=== PATIENT | female | born 2000 | race Two or more races ===

== ENCOUNTER 2023-09-19 09:54 | Emergency (ER) | payer OTHER, SELFPAY ==
--- NOTE | 2023-09-19 09:58 | ECG_ITS ---
Test Reason : CP Blood Pressure : / mmHG Vent. Rate : 081 BPM Atrial Rate : 081 BPM P-R Int : 120 ms QRS Dur : 076 ms QT Int : 372 ms P-R-T Axes : 010 028 003 degrees QTc Int : 432 ms Normal sinus rhythm Nonspecific T wave abnormality Inferior leads Abnormal ECG No previous ECGs available Referred By: Aissatou Bowling Electronically Signed By:DUARTE ZELAYA MD
[2023-09-19 09:59] VITALS: BP 119/67; PULSE 77; RESP 19; TEMP 36.6; O2SAT 99; BMI 41.2
[2023-09-19 10:50] LABS: MANUAL DIFF FLAG NO
[2023-09-19 10:56] LABS: Carbon Monoxide Refer to POC result
[2023-09-19 10:56] LABS: Carbon Monoxide POC 0.3 %
[2023-09-19 10:57] LABS: Basophils Percent Auto 0.3 % (0-2); Eosinophils Percent Auto 0.5 % (0-4); Hematocrit 41.3 % (37.0-47.0); Hemoglobin 14.2 g/dl (12.0-16.0); Imm Gran Abs Auto 0.05 X10*3/uL (0.00-0.03); Imm Gran Pct Auto 0.8 % (0.0-0.4); Lymphocytes Absolute Auto 2.2 X10*3/uL (1.2-4.9); Lymphocytes Percent Auto 36.3 % (20-40); Mean Corpuscular HGB Conc 34.4 g/dl (31.0-35.0); Mean Corpuscular Hemoglobin 28.2 pg (27.0-33.0); Mean Corpuscular Volume 82.1 fL (80.0-98.0); Mean Platelet Volume 9.8 fL (9.4-12.3); Monocytes Absolute Auto 0.3 X10*3/uL (0.1-1.2); Monocytes Percent Auto 4.8 % (2-11); Neutrophils Absolute Auto 3.5 x10*3/uL (2.0-8.3); Neutrophils Percent Auto 57.3 % (45-73); Platelet Count 330 X10*3/uL (160-400); Red Blood Count 5.03 X10*6/uL (4.20-5.50); Red Cell Distribution Width 12.8 % (11.0-16.0); White Blood Count 6.1 X10*3/uL (4.8-10.8)
[2023-09-19 11:05] LABS: Anion Gap 11 (12-20); Blood Urea Nitrogen 12 mg/dL (9-16); Calcium 9.8 mg/dL (8.4-10.2); Carbon Dioxide 26 mmol/L (22-29); Chloride 105 mmol/L (96-108); Creatinine Clr Calc Pharmacy 123.5; Estimated Glomerular Filt Rate > 60; Glucose Random 90 mg/dL (60-115); Potassium 3.6 mmol/L (3.3-5.1); Sodium 138 mmol/L (135-145)
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
--- NOTE | 2023-09-19 13:51 | PC.NURSE ---
swabs obtained and sent to lab.
[2023-09-19 14:12] VITALS: BP 118/57; PULSE 74; RESP 14; TEMP 36.8; O2SAT 100
[2023-09-19 14:21] LABS: Monotest Negative (Negative)
[2023-09-19 14:38] LABS: Influenza A PCR NEGATIVE (Negative); Influenza B PCR NEGATIVE (Negative); Resp Syncy Virus RNA Qual PCR NEGATIVE (Negative); SARS COV2 PCR INHOUSE NEGATIVE (Negative)
== END 2023-09-19 15:00 | disposition home or self-care (01) ==
PROVIDERS: Physician Assistant Medical; Emergency Provider Emergency Medicine
DX: R07.89 Other chest pain (principal); R11.2 Nausea with vomiting, unspecified; R51.9 Headache, unspecified; Z20.822 Contact with and (suspected) exposure to COVID-19; Z20.828 Contact with and (suspected) exposure to other viral communicable diseases; Z79.899 Other long term (current) drug therapy
CPT/HCPCS: 0241U; 36415; 80048; 82375; 85025; 86308; 93005; 99283; 99284